=== PATIENT | male | born 1965 | race Caucasian/White ===

== ENCOUNTER → 2024-07-15 12:07 | Outpatient (BNVA) | payer OTHER, SELFPAY | PROVIDERS: Visit Provider Physician Assistant Medical | DX: S50.02XA Contusion of left elbow, initial encounter (principal); S70.01XA Contusion of right hip, initial encounter; W11.XXXA Fall on and from ladder, initial encounter; M54.50 Low back pain, unspecified | CPT/HCPCS: 73080; 73502; 99204 ==

== ENCOUNTER → 2024-07-21 13:24 | Outpatient (BNVA) | payer OTHER, SELFPAY | PROVIDERS: Visit Provider Physician Assistant Medical | DX: S50.02XA Contusion of left elbow, initial encounter (principal); S70.01XA Contusion of right hip, initial encounter; W11.XXXA Fall on and from ladder, initial encounter; M54.50 Low back pain, unspecified | CPT/HCPCS: 99213 ==

== ENCOUNTER → 2024-08-03 11:26 | Outpatient (BNVA) | payer OTHER, SELFPAY | PROVIDERS: Visit Provider Physician Assistant Medical | DX: S50.02XD Contusion of left elbow, subsequent encounter (principal); S70.01XD Contusion of right hip, subsequent encounter; W11.XXXD Fall on and from ladder, subsequent encounter; M54.50 Low back pain, unspecified; Z02.79 Encounter for issue of other medical certificate | CPT/HCPCS: 99213 ==